=== PATIENT | female | born 2000 | race African-American/Black ===

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

== ENCOUNTER 2018-01-20 17:50 | Emergency (ER) | payer MEDICAID ==
[~2018-01-20] VITALS: Ht 154.9 cm; Wt 59.0 kg
[2018-01-20] MEDS ORDERED: KETOROLAC 30MG/ML VIAL IV STA (18:35)
[2018-01-20] MEDS ORDERED: ONDANSETRON HCL 4MG/2ML VIAL IV STA (18:35)
[2018-01-20] MEDS ORDERED: SODIUM CHLORIDE 0.9% 1,000 ML IV ONE (18:35)
[2018-01-20 19:00] LABS: COLOR URINE YELLOW (YELLOW); KETONES URINE 2+ (NEGATIVE); LEUKOCYTE ESTERASE URINE 1+ (NEGATIVE); NITRITE URINE NEGATIVE (NEGATIVE); OCCULT BLOOD URINE 2+ (NEGATIVE); PROTEIN URINE 1+ (NEGATIVE); SPECIFIC GRAVITY URINE 1.026 (1.005-1.030)
[2018-01-20 19:02] LABS: HEMATOCRIT. 32.3 % (36.0-48.0); HEMOGLOBIN. 10.2 g/dL (12.0-16.0); MEAN CORPUSCULAR HEMOGLOBIN 20.9 pg (28.0-32.0); MEAN CORPUSCULAR VOLUME 65.9 fL (81.0-99.0); MEAN PLATELET VOLUME 8.6 fl (7.4-10.4); PLATELET 206 x1000/uL (130-400); RED BLOOD CELL COUNT 4.91 mill/uL (4.2-5.4); RED CELL DISTRIBUTION WIDTH 22.1 % (11.6-14.6)
[2018-01-20 19:06] LABS: CHLORIDE 110 mEq/L (98-107)
[2018-01-20 19:08] LABS: INR 1.1; PROTHROMBIN TIME 11.6 sec (9.4-11.6)
[2018-01-20 19:09] LABS: CLARITY URINE CLEAR (CLEAR)
[2018-01-20 19:34] LABS: PLATELET ESTIMATE NORMAL
[2018-01-20 19:41] LABS: *AMPHETAMINES SCREEN URINE NEGATIVE (NEGATIVE); *BARBITURATES SCREEN URINE NEGATIVE (NEGATIVE); *BENZODIAZEPINES SCREEN URINE NEGATIVE (NEGATIVE); *COCAINE SCREEN URINE NEGATIVE (NEGATIVE); METHADONE URINE SCREEN NEGATIVE (NEGATIVE)
[2018-01-20 19:42] LABS: PHENCYCLIDINE URINE SCREEN NEGATIVE (NEGATIVE)
[2018-01-20 19:43] LABS: OPIATES URINE SCREEN NEGATIVE (NEGATIVE)
[2018-01-20 19:45] LABS: CANNABINOID URINE SCREEN PRESUMTIVE POSITIVE (NEGATIVE)
[2018-01-20 22:03] VITALS: BP 108/62
== END 2018-01-20 22:20 | disposition home or self-care (01) ==
LOC: ER 17:55
DX: N13.2 Hydronephrosis with renal and ureteral calculous obstruction (principal); E87.6 Hypokalemia; F17.200 Nicotine dependence, unspecified, uncomplicated; F12.10 Cannabis abuse, uncomplicated
CPT/HCPCS: 36415; 74176; 80053; 80305; 81003; 81025; 83690; 85025; 85610; 96361; 96374; 96375; 99285; J1885; J2405; J7030; Z7610